=== PATIENT | male | born 1960 | race Caucasian/White ===

== ENCOUNTER → 2017-05-04 | Outpatient (REF) | payer OTHER ==
[~2017-05-04] MED LIST: AMLO5TAB2 PO; ASPI325T24 PO; CARV12.5 PO; GLUC100020 PO; NATU400T PO; PLAQUENIL PO; VALS1TAB48 PO; [UNRECOGNIZED DRUG - REMARK]
[2017-05-04 18:00] LABS: OSMOLALITY URINE 568 MOSM/KG (500-800)
== END ==
LOC: M LAB REF 16:30
PROVIDERS: ATTEND Internal Medicine
DX: E87.1 Hypo-osmolality and hyponatremia (principal)

== ENCOUNTER 2017-05-05 09:32 | Emergency (ER) | payer OTHER, BC ==
[~2017-05-05] VITALS: Ht 188 cm; Wt 85.5 kg
[2017-05-05] MEDS ORDERED: [UNRECOGNIZED DRUG - REMARK] (09:44)
[2017-05-05 10:27] LABS: BASO % 0.7 % (0.0-1.0); EOS % 0.5 % (0.0-3.0); IMMATURE GRANULOCYTE % 0.2 % (0-0); LYMPH # 0.9 10^3/uL (1.5-4.5); LYMPH % 21.2 % (24.0-44.0); MEAN CORPUSCULAR HEMOGLOBIN 31.3 pg (27.0-33.0); MEAN CORPUSCULAR HGB CONC 34.4 g/dl (32.0-36.5); MONO # 0.5 10^3/uL (0.0-0.8); MONO % 12.9 % (0.0-5.0); NEUTROPHILS # 2.7 10^3/uL (1.8-7.7); NEUTROPHILS % 64.5 % (36.0-66.0); PLATELET COUNT, AUTOMATED 261 10^3/uL (150-450); RED CELL DISTRIBUTION WIDTH 12.2 % (11.5-14.5); WHITE BLOOD COUNT 4.2 10^3/uL (4.0-10.0)
[2017-05-05] MEDS ORDERED: NS 1,000 ML IV ONE (10:30)
[2017-05-05 11:22] LABS: ANION GAP 5 MEQ/L (8-16); BLOOD UREA NITROGEN 7 MG/DL (7-18); CALCIUM LEVEL 8.5 MG/DL (8.5-10.1); CARBON DIOXIDE LEVEL 32 MEQ/L (21-32); CHLORIDE LEVEL 92 MEQ/L (98-107); CREATININE FOR GFR 0.58 MG/DL (0.70-1.30); GLOMERULAR FILTRATION RATE > 60.0 (>56); GLUCOSE, FASTING 83 MG/DL (70-105); POTASSIUM SERUM 3.7 MEQ/L (3.5-5.1); SODIUM LEVEL 129 MEQ/L (136-145)
[2017-05-05 11:32] VITALS: BP 164/97
[2017-05-30] MEDS ORDERED: VALS1TAB48 PO (15:10)
[2017-05-30] MEDS ORDERED: CARV12.5 PO (15:10)
[2017-05-30] MEDS ORDERED: ASPI325T24 PO (15:10)
[2017-05-30] MEDS ORDERED: PLAQUENIL PO (15:10)
[2017-05-30] MEDS ORDERED: AMLO5TAB2 PO (15:10)
[2017-05-30] MEDS ORDERED: NATU400T PO (15:10)
[2017-05-30] MEDS ORDERED: GLUC100020 PO (15:10)
== END 2017-05-05 11:39 | disposition home or self-care (01) ==
LOC: M ED 09:32
DX: E87.1 Hypo-osmolality and hyponatremia (principal); R74.8 Abnormal levels of other serum enzymes; M06.9 Rheumatoid arthritis, unspecified; R56.9 Unspecified convulsions; Z86.718 Personal history of other venous thrombosis and embolism; Z91.012 Allergy to eggs; Z87.891 Personal history of nicotine dependence

== ENCOUNTER → 2017-10-28 | Outpatient (REF) | payer BC, OTHER ==
[2017-10-28 13:14] LABS: SODIUM,RANDOM URINE 75 MEQ/L
[2017-10-28 13:29] LABS: OSMOLALITY URINE 433 MOSM/KG (500-800)
== END ==
LOC: M LAB REF 12:00
DX: I10 Essential (primary) hypertension (principal)
CPT/HCPCS: 83935

== ENCOUNTER → 2018-10-06 | Outpatient (REF) | payer OTHER ==
[~2018-10-06] MED LIST changes: -AMLO5TAB2 PO; +AMLO5TAB6 PO; -ASPI325T24 PO; +ASPI325T25 PO
== END ==
LOC: M LAB REF 12:38
PROVIDERS: ATTEND Internal Medicine
DX: Z79.899 Other long term (current) drug therapy (principal); M05.79 Rheumatoid arthritis with rheumatoid factor of multiple sites without organ or systems involvement

== ENCOUNTER → 2019-04-19 | Outpatient (REF) | payer OTHER ==
[~2019-04-19] MED LIST changes: +ASPI-255 PO; -ASPI325T25 PO; -VALS1TAB48 PO; +VALS1TAB68 PO
[2019-04-19 13:41] LABS: CREATININE,RANDOM URINE 87.5 MG/DL
== END ==
LOC: M LAB REF 12:25
PROVIDERS: ATTEND Internal Medicine
DX: E87.1 Hypo-osmolality and hyponatremia (principal)

== ENCOUNTER → 2019-04-24 | Outpatient (CLI) | payer BC, OTHER ==
--- NOTE | 2019-04-25 07:52 | ECHO ---
DATE OF STUDY: 04/24/2019 REFERRING PROVIDER: SHARDA Guillen INDICATION: Dyspnea. HEIGHT: 73 inches. WEIGHT: 200 pounds. 2D MEASUREMENTS: Aortic root 3.6 cm Ventricular septum 0.96 cm Posterior wall 1.00 cm Left ventricle diastole 4.7 cm Left atrium 3.9 cm Aortic annulus 2.0 cm Left atrial volume index 24 Inferior vena cava 1.5 cm with more than 50% respiratory variation DOPPLER MEASUREMENTS: Mild aortic regurgitation. Mild aortic stenosis. Peak aortic valve velocity 290 cm/2 Peak aortic valve gradient 39 mmHg Mean aortic valve gradient 17 mmHg Aortic valve VTI 62.3 cm LVOT velocity 75.4 cm/s LVOT VTI 20.4 cm Very mild mitral regurgitation Mitral E velocity 108 cm/s Mitral A velocity 60.1 cm/s Mitral deceleration time 215 ms Very mild tricuspid regurgitation Pulmonary artery systolic pressure 21 mmHg MITRAL ANNULAR TISSUE DOPPLER: E prime lateral 8.9 cm/s E prime septal 8.3 cm/s DESCRIPTION: Rhythm was sinus with appearance of a first degree AV block. Image quality was good. This was a 2D, M mode, color flow Doppler and pulse wave Doppler examination and included mitral annular tissue Doppler. CONCLUSIONS: 1. Degenerative, calcific aortic valve disease with moderately severe focal thickening and focal calcific deposits of a three-cuspid aortic valve. Mild aortic stenosis and mild aortic regurgitation. 2 Tiny pericardial effusion. 3. Normal left ventricle internal dimensions and wall thickness. Normal regional LV wall motion and wall thickening. Normal LV systolic function. LVEF 68% (3D). 4. Suggestive of normal pulmonary artery systolic pressure. ADDITIONAL COMMENTS/RECOMMENDATIONS: Recommend a followup echocardiogram Doppler in one year.
== END ==
LOC: M CARPUL 10:20
PROVIDERS: ATTEND Physician Assistant Medical
DX: I35.0 Nonrheumatic aortic (valve) stenosis (principal); I31.3 Pericardial effusion (noninflammatory); I44.0 Atrioventricular block, first degree